=== PATIENT | female | born 1950 | race Two or more races ===

== ENCOUNTER 2019-08-18 07:45 | Day surgery (SDC) | payer OTHER | END 2019-08-18 13:39 | disposition home or self-care (01) | LOC: AMB-ENDOS 07:45 | DX: D12.3 Benign neoplasm of transverse colon (principal); K57.30 Diverticulosis of large intestine without perforation or abscess without bleeding; D12.4 Benign neoplasm of descending colon; K64.1 Second degree hemorrhoids ==